=== PATIENT | male | born 1955 | race Caucasian/White ===

== ENCOUNTER 2018-10-09 12:06 | Emergency (ER) | payer OTHER ==
--- NOTE | 2018-10-09 12:24 | ED ---
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 Injury injury and burn was about 2 hours prior to arrival. Take off close immediately, he has severe right-sided burn right-sided chest and abdomen burn mostly first-degree with areas of second degree blistering. Patient denies any other areas of injury. No modifying factors, patient is not taking anything for pain. MD Complaint: burn (Hot water) -: hour(s) Type of Exposure: hot liquid Smoke Inhalation: none Place: industrial Location: chest, abdomen Severity: moderate Severity scale (1-10): 7 Associated Symptoms: fever/chills - Related Data Home Medications Medication Instructions Recorded Confirmed No Known Home Medications 10/09/18 10/09/18 Allergies Allergy/AdvReac Type Severity Reaction Status Date / Time No Known Allergies Allergy Verified 10/09/18 13:35 Review of Systems ROS Statement: Those systems with pertinent positive or pertinent negative responses have been documented in the HPI. ROS Other: All systems not noted in ROS Statement are negative. Past Medical History Past Medical History: Chest Pain / Angina History of Any Multi-Drug Resistant Organisms: None Reported Past Surgical History: Heart Catheterization With Stent Past Psychological History: No Psychological Hx Reported Smoking Status: Current every day smoker Past Alcohol Use History: None Reported Past Drug Use History: None Reported General Exam - General Exam Comments Initial Comments: 15% burn area to the anterior abdomen, 2% second degree Limitations: no limitations General appearance: alert, in no apparent distress Head exam: Present: atraumatic, normocephalic, normal inspection Eye exam: Present: normal appearance, PERRL, EOMI. Absent: scleral icterus, conjunctival injection, periorbital swelling ENT exam: Present: normal exam, mucous membranes moist Neck exam: Present: normal inspection. Absent: tenderness, meningismus, lymphadenopathy Respiratory exam: Present: normal lung sounds bilaterally. Absent: respiratory distress, wheezes, rales, rhonchi, stridor Cardiovascular Exam: Present: regular rate, normal rhythm, normal heart sounds. Absent: systolic murmur, diastolic murmur, rubs, gallop, clicks GI/Abdominal exam: Present: soft, normal bowel sounds. Absent: distended, tenderness, guarding, rebound, rigid Extremities exam: Present: normal inspection, full ROM, normal capillary refill. Absent: tenderness, pedal edema, joint swelling, calf tenderness Back exam: Present: normal inspection Neurological exam: Present: alert, oriented X3, CN II-XII intact Psychiatric exam: Present: normal affect, normal mood Skin exam: Present: warm, dry, intact, normal color. Absent: rash Course Vital Signs 10/09/18 10/09/18 12:12 13:31 Temperature 97.7 F Pulse Rate 72 65 Respiratory 20 20 Rate Blood Pressure 131/85 119/89 O2 Sat by Pulse 99 Oximetry - Reevaluation(s) Reevaluation #1: 10/09/18 12:58 medical records reviewed Reevaluation #2: 10/09/18 12:58 Patient's pain is controlled Reevaluation #3: 10/09/18 14:15 Patient improved Medical Decision Making - Medical Decision Making 63 male the ER for evaluation for second degree burn of abdominal wall. Patient encouraged to continue wet-to-dry can be discharged home Disposition Clinical Impression: Thermal burn, Second degree burn of abdomen, First degree burn of abdominal wall Disposition: HOME SELF-CARE Condition: Good Instructions (If sedation given, give patient instructions): Superficial Burn (ED), Second Degree Burn (ED) Is patient prescribed a controlled substance at d/c from ED?: No Referrals: [facility] [Primary Care Provider] - 1-2 days
[2018-10-09] MEDS ORDERED: SODIUM CHLORIDE 0.9% 1,000 ML IV STA ×2 (12:55)
[2018-10-09] MEDS ORDERED: SODIUM CHLORIDE 0.9% 500 ML 500 ML IV STA (12:55)
[2018-10-09] MEDS ORDERED: HYDROmorphone 1 MG/ML 1 ML SYRINGE IVP STA (12:55)
[2018-10-09] MEDS ORDERED: DIPH,PERTUS(ACELL)TETVAC-LF 0.5 ML VIAL IM ONE (12:56)
[2018-10-09] MEDS ORDERED: HYDROcodone/APAP 5-325MG 1 EACH TAB PO STA (14:14)
[2018-10-09] MEDS ORDERED: KETOROLAC 30 MG/ML 1 ML VIAL IVP STA (14:14)
--- NOTE | 2018-10-09 15:36 | ED ---
Medical Decision Making - Medical Decision Making This patient is requesting pain medication, will prescribe pain medication for burn control her pain control Disposition Clinical Impression: Thermal burn, Second degree burn of abdomen, First degree burn of abdominal wall Disposition: HOME SELF-CARE Condition: Good Instructions (If sedation given, give patient instructions): Superficial Burn (ED), Second Degree Burn (ED) Prescriptions: HYDROcodone/APAP 5-325MG [[place] 5-325] 1 tab PO Q6HR PRN #12 tab PRN Reason: Pain Is patient prescribed a controlled substance at d/c from ED?: Yes When asked, does pt state using other controlled substances?: No If prescribed controlled substance>3 days was MAPS reviewed?: Prescribed <3 Days Referrals: [facility] [Primary Care Provider] - 1-2 days
[2018-10-09 15:51] VITALS: BP 129/80; PULSE 82; RESP 18; TEMP 97.3
== END 2018-10-09 15:51 | disposition home or self-care (01) ==
LOC: EC 12:06
DX: T21.22XA Burn of second degree of abdominal wall, initial encounter (principal); T21.01XA Burn of unspecified degree of chest wall, initial encounter; T31.0 Burns involving less than 10% of body surface; F17.200 Nicotine dependence, unspecified, uncomplicated; Z23 Encounter for immunization; Z95.5 Presence of coronary angioplasty implant and graft; X12.XXXA Contact with other hot fluids, initial encounter; Y92.511 Restaurant or cafe as the place of occurrence of the external cause; Y99.0 Civilian activity done for income or pay
CPT/HCPCS: 90715; 99284; 96374; 96375; 90471; J1885; J1170

== ENCOUNTER 2019-05-11 23:17 | Emergency (ER) | payer OTHER ==
[2019-05-11 23:24] VITALS: RESP 18; TEMP 98
[2019-05-11] MEDS ORDERED: KETOROLAC 30 MG/ML 1 ML VIAL IM STA (23:51)
[2019-05-11] MEDS ORDERED: DIAZEPAM 5 MG/ML 2 ML INJ IM ONE (23:51)
[2019-05-11] MEDS ORDERED: MORPHINE SULFATE 4 MG/ML SYRINGE IM STA (23:51)
--- NOTE | 2019-05-12 00:30 | ED ---
Neck Injury/Pain HPI - General Chief Complaint: Neck Pain/Injury Stated Complaint: lt shoulder pain Time Seen by Provider: 05/11/19 23:28 Mode of arrival: ambulatory Limitations: no limitations - History of Present Illness Initial Comments: 63-year-old male patient presents to the emergency department today for evaluation of neck pain radiating down his arms. Patient states he has been dealing with a "neck strain" for the last week. Patient states that it worsened this morning, states he went to [facility] for evaluation this morning. He was given robaxin and motrin. States he took his medication and went to sleep. He woke 2 hours ago with extreme symptoms. Patient states that the pain is radiating down into the left shoulder and into his arm. Denies numbness or tingling to the upper extremities. Denies any known injury. He denies any chest pain, shortness of breath, abdominal pain, nausea, or vomiting. Denies any dizziness, weakness, or headache. Patient states sometimes the pain worsens with certain arm movements. Patient denies any recent rash, fever, chills, diarrhea, constipation, back pain, numbness, tingling, hematuria, dysuria, urinary urgency, urinary frequency, visual changes, or any other complaints. - Related Data Previous Rx's Medication Instructions Recorded HYDROcodone/APAP 5-325MG [[place] 1 tab PO Q6HR PRN #12 tab 10/09/18 5-325] Allergies Allergy/AdvReac Type Severity Reaction Status Date / Time No Known Allergies Allergy Verified 10/09/18 13:35 Review of Systems ROS Statement: Those systems with pertinent positive or pertinent negative responses have been documented in the HPI. ROS Other: All systems not noted in ROS Statement are negative. Past Medical History Past Medical History: Chest Pain / Angina History of Any Multi-Drug Resistant Organisms: None Reported Past Surgical History: Heart Catheterization With Stent Past Psychological History: No Psychological Hx Reported Smoking Status: Current every day smoker Past Alcohol Use History: None Reported Past Drug Use History: None Reported General Exam Limitations: no limitations General appearance: alert, in no apparent distress, other (This is a well- developed, well-nourished, adult male patient in no acute distress. Vital signs upon presentation are temperature 98.0F, pulse 74, respirations 18, blood pressure 106/75, pulse ox 97% on room air.) Eye exam: Present: normal appearance, PERRL, EOMI. Absent: scleral icterus, conjunctival injection, periorbital swelling ENT exam: Present: normal exam, normal oropharynx, mucous membranes moist Respiratory exam: Present: normal lung sounds bilaterally. Absent: respiratory distress, wheezes, rales, rhonchi, stridor Cardiovascular Exam: Present: regular rate, normal rhythm, normal heart sounds. Absent: systolic murmur, diastolic murmur, rubs, gallop, clicks GI/Abdominal exam: Present: soft, normal bowel sounds. Absent: distended, tenderness, guarding, rebound, rigid Extremities exam: Present: normal inspection, full ROM, normal capillary refill, other (Skin to the upper extremities is pink, warm, dry. Cap refills less than 3 seconds. Radial pulses 2+ and equal bilaterally.). Absent: tenderness, pedal edema, joint swelling, calf tenderness Neurological exam: Present: alert, oriented X3, CN II-XII intact Psychiatric exam: Present: normal affect, normal mood Skin exam: Present: warm, dry, intact, normal color. Absent: rash Course Vital Signs 05/11/19 23:20 Temperature 98 F Pulse Rate 74 Respiratory 18 Rate Blood Pressure 106/75 O2 Sat by Pulse 97 Oximetry Medical Decision Making - Medical Decision Making 63-year-old male patient presents to the emergency department today for evaluation of neck pain radiating into his shoulders. Physical examination is unremarkable. He is neurologically intact with no focal deficits. Neurovascular status is intact. CT of the C-spine was obtained and shows no acute fractures but did show spondylotic changes. Discuss findings and results with the patient. He does have improved symptoms after receiving pain medication here in the emergency department. He does have anti-inflammatory muscle relaxers at home. We'll give a starter pack of Tylenol for codeine for breakthrough pain. He is instructed to follow up with his primary care physician which is currently the [facility]'s clinic to discuss further evaluation possible MRI and referral to catalog specialist. Return parameters were discussed in detail. He verbalizes understanding and agrees with this plan. - Radiology Data Radiology results: report reviewed, image reviewed CT cervical spine without contrast was obtained. Report was reviewed in its entirety. Impression by Dr. Lyles shows spondylotic changes. No fracture seen Disposition Clinical Impression: Neck pain Disposition: HOME SELF-CARE Condition: Good Instructions (If sedation given, give patient instructions): Neck Pain (ED) Additional Instructions: Follow-up with your primary care physician for recheck in 1-2 days. Discuss MRI for further evaluation of her neck pain. Return to the emergency department immediately for any new, worsening, or concerning symptoms. Is patient prescribed a controlled substance at d/c from ED?: No Referrals: None,Stated [Primary Care Provider] - 1-2 days Time of Disposition: 01:34
--- NOTE | 2019-05-12 01:01 | CT ---
EXAMINATION TYPE: CT cervical spine wo con DATE OF EXAM: 05/12/2019 COMPARISON: None HISTORY: Neck pain CT DLP: mGycm Automated exposure control for dose reduction was used. Cervical vertebra have normal alignment. There is some spurring of the endplates from C4 to C7. Poste rior elements are intact. Facet joints are intact. Skull base is intact. There is no evidence of a fr acture. I see no bony destructive process. IMPRESSION: Spondylotic changes. No fracture seen.
[2019-05-12] MEDS ORDERED: ACET/COD 300 MG/30 MG STARTER PACK 6 TAB BTL PO STA (01:38)
[2019-05-12 02:00] VITALS: BP 109/73; PULSE 60
== END 2019-05-12 02:19 | disposition home or self-care (01) ==
LOC: EC 23:17
DX: M54.2 Cervicalgia (principal); M25.512 Pain in left shoulder; I25.2 Old myocardial infarction; F17.200 Nicotine dependence, unspecified, uncomplicated; Z95.5 Presence of coronary angioplasty implant and graft
CPT/HCPCS: 72125; 96372 ×2; 99283; J2270; J3360

== ENCOUNTER 2022-02-09 18:23 | Observation (INO) | payer MEDICARE ==
[2022-02-09 18:59] LABS: Basophils # (A) 0.1 k/uL (0-0.2); Basophils % (A) 1 %; Eosinophils # (A) 0.3 k/uL (0-0.7); Eosinophils % (A) 4 %; HCT 43.4 % (39.0-53.0); HGB 14.7 gm/dL (13.0-17.5); Lymphocytes # (A) 0.7 k/uL (1.0-4.8); Lymphocytes % (A) 10 %; MCH 30.3 pg (25.0-35.0); MCHC 33.8 g/dL (31.0-37.0); MCV 89.8 fL (80.0-100.0); Mean Platelet Volume 6.8; Monocytes # (A) 0.7 k/uL (0-1.0); Monocytes % (A) 11 %; Neutrophils # (A) 4.9 k/uL (1.3-7.7); Neutrophils % (A) 73 %; Platelet Count 334 k/uL (150-450); RBC 4.83 m/uL (4.30-5.90); RDW 13.3 % (11.5-15.5); WBC 6.7 k/uL (3.8-10.6)
--- NOTE | 2022-02-09 19:06 | XR ---
EXAMINATION TYPE: XR chest 2V DATE OF EXAM: 02/09/2022 COMPARISON: NONE HISTORY: Chest pain TECHNIQUE: FINDINGS: Heart and mediastinum are normal. Lungs are clear. Diaphragm is normal. Bony thorax is inta ct. IMPRESSION: Normal chest.
[2022-02-09 19:08] LABS: INR 1.1 (<1.2); Partial Thromboplastin Time 24.2 sec (22.0-30.0); Prothrombin Time 11.4 sec (9.0-12.0)
[2022-02-09 19:14] LABS: ALT 17 U/L (4-49); AST 21 U/L (17-59); African American GFR (CKD) >90 (>60 ml/min/1.73 sqM); Alkaline Phosphatase 69 U/L (38-126); Anion Gap 12 mmol/L; Blood Urea Nitrogen 13 mg/dL (9-20); Calcium 9.1 mg/dL (8.4-10.2); Carbon Dioxide 22 mmol/L (22-30); Chloride 102 mmol/L (98-107); Glucose 101 mg/dL (74-99); Magnesium 1.8 mg/dL (1.6-2.3); Non-African American GFR(CKD) >90 (>60 ml/min/1.73 sqM); Potassium 3.8 mmol/L (3.5-5.1); Sodium 136 mmol/L (137-145); Total Bilirubin 0.2 mg/dL (0.2-1.3); Total Protein 6.5 g/dL (6.3-8.2)
[2022-02-09] MEDS ORDERED: HYDROmorphone 0.5 MG/0.5 ML SYRINGE IVP STA (19:50)
--- NOTE | 2022-02-09 19:56 | ED ---
General Adult HPI - General Chief complaint: Chest Pain Stated complaint: chest pain, R side pain Time Seen by Provider: 02/09/22 19:30 Source: patient, RN notes reviewed, old records reviewed Mode of arrival: wheelchair Limitations: no limitations - History of Present Illness Initial comments: This is a 66-year-old male who presents emergency Department complaining of having pain in his chest abdomen back with radiation into his legs. Patient states it started in his stomach yesterday and he was nauseated but didn't vomit had no diarrhea. Patient states it didn't seem to radiate into his back and down both of his legs. Patient states movement did not appear to make it worse actually lying down seems to make it little worse. Patient stated then went up into his chest and he was having significant left-sided chest pain. Patient states currently the chest pain and abdominal pain have resolved and the back pain and radiation of the legs continues but is not as bad as it was earlier. Patient denies any fever chills or cough per patient denies shortness of breath or difficulty breathing. Patient denies any headache patient denies numbness weakness. Patient denies lightheadedness or dizziness. 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 Patient does have a previous history for cardiac stent. Patient has high cholesterol and is a very heavy smoker - Related Data Home Medications Medication Instructions Recorded Confirmed Aspirin EC [Ecotrin Low Dose] 81 mg PO DAILY 02/09/22 02/09/22 Atorvastatin Calcium [Lipitor] 80 mg PO DAILY 02/09/22 02/09/22 Clopidogrel [Plavix] 75 mg PO DAILY 02/09/22 02/09/22 Metoprolol Succinate (ER) [Toprol 12.5 mg PO DAILY 02/09/22 02/09/22 Xl] Nitroglycerin Sl Tabs [Nitrostat] 0.4 mg SUBLINGUAL Q5M PRN 02/09/22 02/09/22 Allergies Allergy/AdvReac Type Severity Reaction Status Date / Time meperidine [From Demerol] Allergy Unknown Verified 02/09/22 21:17 Review of Systems ROS Statement: Those systems with pertinent positive or pertinent negative responses have been documented in the HPI. ROS Other: All systems not noted in ROS Statement are negative. Past Medical History Past Medical History: Coronary Artery Disease (CAD), Chest Pain / Angina, Hyperlipidemia, Hypertension History of Any Multi-Drug Resistant Organisms: None Reported Past Surgical History: Heart Catheterization With Stent Past Psychological History: No Psychological Hx Reported Smoking Status: Current every day smoker Past Alcohol Use History: None Reported Past Drug Use History: None Reported General Exam - General Exam Comments Initial Comments: GENERAL: Patient is well-developed and well-nourished. Patient is nontoxic and well- hydrated and is in mild distress. ENT: Neck is soft and supple. No significant lymphadenopathy is noted. Oropharynx is clear. Moist mucous membranes. Neck has full range of motion without eliciting any pain. EYES: The sclera were anicteric and conjunctiva were pink and moist. Extraocular movements were intact and pupils were equal round and reactive to light. Eyelids were unremarkable. PULMONARY: Unlabored respirations. Good breath sounds bilaterally. No audible rales rho nchi or wheezing was noted. CARDIOVASCULAR: There is a regular rate and rhythm without any murmurs gallops or rubs. ABDOMEN: Soft and nontender with normal bowel sounds. No palpable organomegaly was noted. There is no palpable pulsatile mass. SKIN: Skin is clear with no lesions or rashes and otherwise unremarkable. NEUROLOGIC: Patient is alert and oriented x3. Cranial nerves II through XII are grossly intact. Motor and sensory are also intact. Normal speech, volume and content. Symmetrical smile. Straight leg test is negative bilaterally MUSCULOSKELETAL: Normal extremities with adequate strength and full range of motion. No lower extremity swelling or edema. No calf tenderness. Palpation of the back elicits no pain LYMPHATICS: No significant lymphadenopathy is noted PSYCHIATRIC: Normal psychiatric evaluation. N Limitations: no limitations Course Vital Signs 02/09/22 18:30 Temperature 99 F Pulse Rate 91 Respiratory 20 Rate Blood Pressure 98/68 O2 Sat by Pulse 97 Oximetry Medical Decision Making - Medical Decision Making EKG shows sinus rhythm at 73 bpm MN interval 262 QRS is 74 QT interval 370 QTC is 396. Patient's EKG shows no ST segment elevation or depression. CT of the lumbar thoracic area shows no acute abnormalities. CT of the aorta shows no acute abnormality. Patient stated that the Dilaudid did help his back pain. But he still concerned about his chest pain as previous stent. [facility] the patient will write admitting orders and consult cardiology - Lab Data Result diagrams: 02/09/22 18:45 02/09/22 18:45 Lab Results 02/09/22 02/09/22 02/09/22 Range/Units 18:45 18:45 18:45 WBC 6.7 (3.8-10.6) k/uL RBC 4.83 (4.30-5.90) m/uL Hgb 14.7 (13.0-17.5) gm/dL Hct 43.4 (39.0-53.0) % MCV 89.8 (80.0-100.0) fL MCH 30.3 (25.0-35.0) pg MCHC 33.8 (31.0-37.0) g/dL RDW 13.3 (11.5-15.5) % Plt Count 334 (150-450) k/uL MPV 6.8 Neutrophils % 73 % Lymphocytes % 10 % Monocytes % 11 % Eosinophils % 4 % Basophils % 1 % Neutrophils # 4.9 (1.3-7.7) k/uL Lymphocytes # 0.7 L (1.0-4.8) k/uL Monocytes # 0.7 (0-1.0) k/uL Eosinophils # 0.3 (0-0.7) k/uL Basophils # 0.1 (0-0.2) k/uL PT 11.4 (9.0-12.0) sec INR 1.1 (<1.2) APTT 24.2 (22.0-30.0) sec D-Dimer (<0.60) mg/L FEU Sodium 136 L (137-145) mmol/L Potassium 3.8 (3.5-5.1) mmol/L Chloride 102 (98-107) mmol/L Carbon Dioxide 22 (22-30) mmol/L Anion Gap 12 mmol/L BUN 13 (9-20) mg/dL Creatinine 0.57 L (0.66-1.25) mg/dL Est GFR (CKD-EPI)AfAm >90 (>60 ml/min/1.73 sqM) Est GFR (CKD-EPI)NonAf >90 (>60 ml/min/1.73 sqM) Glucose 101 H (74-99) mg/dL Calcium 9.1 (8.4-10.2) mg/dL Magnesium 1.8 (1.6-2.3) mg/dL Total Bilirubin 0.2 (0.2-1.3) mg/dL AST 21 (17-59) U/L ALT 17 (4-49) U/L Alkaline Phosphatase 69 (38-126) U/L Troponin I (0.000-0.034) ng/mL Total Protein 6.5 (6.3-8.2) g/dL Albumin 4.0 (3.5-5.0) g/dL 02/09/22 02/09/22 Range/Units 18:45 19:42 WBC (3.8-10.6) k/uL RBC (4.30-5.90) m/uL Hgb (13.0-17.5) gm/dL Hct (39.0-53.0) % MCV (80.0-100.0) fL MCH (25.0-35.0) pg MCHC (31.0-37.0) g/dL RDW (11.5-15.5) % Plt Count (150-450) k/uL MPV Neutrophils % % Lymphocytes % % Monocytes % % Eosinophils % % Basophils % % Neutrophils # (1.3-7.7) k/uL Lymphocytes # (1.0-4.8) k/uL Monocytes # (0-1.0) k/uL Eosinophils # (0-0.7) k/uL Basophils # (0-0.2) k/uL PT (9.0-12.0) sec INR (<1.2) APTT (22.0-30.0) sec D-Dimer 0.35 (<0.60) mg/L FEU Sodium (137-145) mmol/L Potassium (3.5-5.1) mmol/L Chloride (98-107) mmol/L Carbon Dioxide (22-30) mmol/L Anion Gap mmol/L BUN (9-20) mg/dL Creatinine (0.66-1.25) mg/dL Est GFR (CKD-EPI)AfAm (>60 ml/min/1.73 sqM) Est GFR (CKD-EPI)NonAf (>60 ml/min/1.73 sqM) Glucose (74-99) mg/dL Calcium (8.4-10.2) mg/dL Magnesium (1.6-2.3) mg/dL Total Bilirubin (0.2-1.3) mg/dL AST (17-59) U/L ALT (4-49) U/L Alkaline Phosphatase (38-126) U/L Troponin I <0.012 (0.000-0.034) ng/mL Total Protein (6.3-8.2) g/dL Albumin (3.5-5.0) g/dL Disposition Clinical Impression: Chest pain, Lumbar pain Disposition: ADMITTED IP TO THIS HOSP Referrals: Olaf Zamora MD [Primary Care Provider] - 1-2 days Time of Disposition: 21:19
--- NOTE | 2022-02-09 21:00 | CT ---
EXAMINATION TYPE: CT thor lumbar spine wo con DATE OF EXAM: 02/09/2022 COMPARISON: HISTORY: Chest abdomen and back pain CT DLP: 1210.7 combined mGycm Automated exposure control for dose reduction was used. Images obtained from the level of C7-S2 vertebra with no contrast. The thoracic and lumbar vertebra have normal spacing and alignment. Posterior element are intact. No compression fracture. Disc spaces are well-maintained for the patient's age. There is no thoracic or lumbar paraspinal mass. The posterior elements are intact. No evidence of spi nal stenosis. The sacroiliac joints are intact. There is a mild posterior disc bulging at L4-5. No fo ade bone destruction. IMPRESSION: Negative CT scan of the thoracic and lumbar spine. No fracture. No evidence of any significant disc h erniation. No spinal stenosis.
--- NOTE | 2022-02-09 21:10 | CT ---
EXAMINATION TYPE: CT angio thor/abd pel aorta DATE OF EXAM: 02/09/2022 COMPARISON: None HISTORY: Chest abdomen and back pain CT DLP: 1210.7 combined mGycm Automated exposure control for dose reduction was used. CONTRAST: Performed with IV Contrast, patient injected with 100ml mL of Isovue 370. Images obtained from the thoracic inlet to the floor the pelvis without and subsequently with the IV contrast Isovue 100 mL. There are 3-D post processed images. There is some minimal reticular interstitial infiltrate at the lung apices. Heart size is normal. No pericardial effusion. There are no hilar masses. There is no mediastinal adenopathy. There is emphyse matous bulla in the anterior mediastinum on the left side. Liver spleen stomach pancreas and gallblad pro appear intact. The bile ducts are not dilated. There is no adrenal mass. Kidneys have normal size . No hydronephrosis. There is 2 mm calculus anterior left kidney. There is some amorphous 5 mm calcif ication lower pole left kidney. This is apparently a 2 cm complex cortical cyst. There is no retroper itoneal adenopathy. Abdominal aorta is atheromatous. Bladder distends smoothly. There is prostate ade cification. No inguinal hernia. No free fluid in the pelvis. No pelvic mass. There is no mesenteric edema. No ascites or free air. No sign of a bowel obstruction. The lumbar vertebrae have normal alignment. Posterior elements are intact. No compression fracture. S ternum is intact. The ribs are intact. Thoracic vertebrae appear intact. The bony pelvis is intact. H ip joints appear normal. The thoracic aorta appears intact. The ascending aorta measures 3.4 cm. No dissection. There is no fi lling defect in the pulmonary arteries. Abdominal aorta is intact. No aneurysm or dissection. There i s atherosclerotic vascular calcification of the abdominal aorta. There is arterial flow in the celiac artery and superior mesenteric artery. There is arterial flow in the renal and iliac and femoral art eries. No evidence of hemodynamic stenosis. IMPRESSION: There is some mild diffuse plaque formation of the abdominal aorta and its branches without evidence of hemodynamic stenosis. No evidence of pulmonary embolism. No evidence of aortic aneurysm or dissection.
[2022-02-09] MEDS ORDERED: NITROGLYCERIN SL TABS 0.4 MG TAB SUBLINGUAL PRN (21:19)
[2022-02-10] MEDS: NITROGLYCERIN OINT 1 INCH/GM PACKET TOPICAL SCH ×2 (01:16→05:21)
[2022-02-10] MEDS ORDERED: SODIUM CHLORIDE 0.9% 1,000 ML IV SCH (07:45)
[2022-02-10] MEDS ORDERED: DOBUTamine DRIP for NUC MED 500 MG in DEXTROSE/WATER 1 250ML.BAG IV PRN (08:12)
[2022-02-10] MEDS ORDERED: ASPIRIN 81 MG PO SCH (09:00)
[2022-02-10] MEDS ORDERED: ASPIRIN 325 MG TAB PO SCH (09:00)
[2022-02-10] MEDS ORDERED: MAG HYDROX/AL HYDROX/SIMETH 30 ML, HYOSCYAMINE ELIXIR 10 ML, LIDOCAINE VISCOUS 2% 10 ML PO ONE ×3 (09:00)
[2022-02-10] MEDS ORDERED: ATORVASTATIN 80 MG TAB PO SCH (09:00)
[2022-02-10] MEDS ORDERED: METOPROLOL SUCCINATE (ER) 25 MG TAB.ER.24H PO SCH (09:00)
[2022-02-10] MEDS ORDERED: CLOPIDOGREL 75 MG TAB PO SCH (09:00)
[2022-02-10 09:32] LABS: Chol/HDL Ratio 4.39 Ratio; LDL Cholesterol,Calculated 87.5 mg/dL (0.0-131.0)
--- NOTE | 2022-02-10 09:57 | P.CRDCN ---
History of Present Illness History of present illness: HISTORY OF PRESENT ILLNESS: This is a 66-year-old male with a past medical history significant for nicotine dependence, hyperlipidemia, and coronary artery disease with previous stenting (details unknown as this was performed in [place]). Patient does not follow wi th a brusher hand. We have been asked to see the patient in consultation for chest pain. Patient examined at the bedside. Patient presented to the hospital a chief complaint of back pain and chest pain. Patient states he has been having back pain for the past few days and pain shooting down his legs. Patient also reports having pain in the middle of his chest that has been intermittent for the past few months. He states that sometimes it feels like a heartburn sensation. He states drinking water makes it better. The patient is a current smoker and smokes 2.5 packs per day. * EKG reveals sinus mechanism with nonspecific ST-T wave changes * Chest xray negative for acute process * Laboratory data: WBC 6.7. Hemoglobin 14.7. Platelet count 334. D-dimer 0.35. Sodium 136. Potassium 3.8. BUN 13. Creatinine 0.57. Magnesium 1.8. * Current home cardiac medications include aspirin 81 mg daily, Lipitor 80 mg daily, Plavix 75 mg daily, metoprolol succinate 12.5 mg daily REVIEW OF SYSTEMS: At the time of my exam: CONSTITUTIONAL: Denies fever or chills. HEENT: Denies blurred vision, vision changes, or eye pain. Denies hemoptysis CARDIOVASCULAR: Denies chest pain. Denies orthopnea. Denies PND. Denies palpitations RESPIRATORY: Denies shortness of breath. GASTROINTESTINAL: Denies abdominal pain. Denies nausea or vomiting. HEMATOLOGIC: Denies bleeding disorders. GENITOURINARY: Denies any blood in urine. SKIN: Denies pruitis. Denies rash. PHYSICAL EXAM: VITAL SIGNS: Reviewed. GENERAL: Well-developed in no acute distress. HEENT: Head is normocephalic. Pupils are equal, round. Sclerae anicteric. Mucous membranes of the mouth are moist. Neck supple. No JVD or thyromegaly LUNGS: Respirations even and unlabored. Lungs diminished to auscultation bilaterally. HEART: Regular rate and rhythm. S1 and S2 heard. ABDOMEN: Soft. Nondistended. Nontender. EXTREMITIES: Normal range of motion. No clubbing or cyanosis. Peripheral pulses intact. No lower extremity edema NEUROLOGIC: Awake and alert. Oriented x 3. ASSESSMENT: Chest pain Back pain Coronary artery disease with previous stenting Hyperlipidemia Nicotine dependence PLAN: An acute coronary event has been ruled out Obtain records from patients previous brusher hand in [place] Obtain 2D echo to assess cardiac structure and function Resume home cardiac medications Smoking cessation recommended Management and evaluation of back pain per primary medicine Patient to undergo Dobutamine stress echo today Further recommendations pending patient course Nurse practitioner note has been reviewed by physician. Signing provider agrees with the documented findings, assessment, and plan of care. Past Medical History Past Medical History: Coronary Artery Disease (CAD), Chest Pain / Angina, Hyperlipidemia, Hypertension History of Any Multi-Drug Resistant Organisms: None Reported Past Surgical History: Heart Catheterization With Stent Past Anesthesia/Blood Transfusion Reactions: No Reported Reaction Date of Last Stent Placement:: 2015 Past Psychological History: No Psychological Hx Reported Smoking Status: Current every day smoker Past Alcohol Use History: None Reported Past Drug Use History: None Reported Medications and Allergies Home Medications Medication Instructions Recorded Confirmed Type Aspirin EC [Ecotrin Low Dose] 81 mg PO DAILY 02/09/22 02/09/22 History Atorvastatin Calcium [Lipitor] 80 mg PO DAILY 02/09/22 02/09/22 History Clopidogrel [Plavix] 75 mg PO DAILY 02/09/22 02/09/22 History Metoprolol Succinate (ER) [Toprol 12.5 mg PO DAILY 02/09/22 02/09/22 History Xl] Nitroglycerin Sl Tabs [Nitrostat] 0.4 mg SUBLINGUAL Q5M PRN 02/09/22 02/09/22 History Allergies Allergy/AdvReac Type Severity Reaction Status Date / Time meperidine [From Demerol] Allergy Unknown Verified 02/09/22 21:17 Physical Exam Vitals: Vital Signs Temp Pulse Pulse Resp BP BP Pulse Ox 02/10/22 02:33 98.6 F 66 15 98/57 96 02/09/22 23:40 99.4 F 72 17 89/54 95 02/09/22 22:55 73 18 96/58 93 L 02/09/22 18:30 99 F 91 20 98/68 97 Intake and Output 02/09/22 02/10/22 02/10/22 22:59 06:59 14:59 Other: # Voids 1 Weight 65.771 kg Results 02/09/22 18:45 02/09/22 18:45 Cardiac Enzymes 02/09/22 02/09/22 02/09/22 Range/Units 18:45 18:45 22:02 AST 21 (17-59) U/L Troponin I <0.012 <0.012 (0.000-0.034) ng/mL 02/10/22 Range/Units 00:43 AST (17-59) U/L Troponin I <0.012 (0.000-0.034) ng/mL Coagulation 02/09/22 Range/Units 18:45 PT 11.4 (9.0-12.0) sec APTT 24.2 (22.0-30.0) sec CBC 02/09/22 Range/Units 18:45 WBC 6.7 (3.8-10.6) k/uL RBC 4.83 (4.30-5.90) m/uL Hgb 14.7 (13.0-17.5) gm/dL Hct 43.4 (39.0-53.0) % Plt Count 334 (150-450) k/uL Comprehensive Metabolic Panel 02/09/22 Range/Units 18:45 Sodium 136 L (137-145) mmol/L Potassium 3.8 (3.5-5.1) mmol/L Chloride 102 (98-107) mmol/L Carbon Dioxide 22 (22-30) mmol/L BUN 13 (9-20) mg/dL Creatinine 0.57 L (0.66-1.25) mg/dL Glucose 101 H (74-99) mg/dL Calcium 9.1 (8.4-10.2) mg/dL AST 21 (17-59) U/L ALT 17 (4-49) U/L Alkaline Phosphatase 69 (38-126) U/L Total Protein 6.5 (6.3-8.2) g/dL Albumin 4.0 (3.5-5.0) g/dL Current Medications Generic Name Dose Route Start Last Admin Trade Name Freq PRN Reason Stop Dose Admin Aspirin 81 mg 02/10/22 09:00 Aspirin 81 Mg PO DAILY [facility] Atorvastatin Calcium 80 mg 02/10/22 09:00 Atorvastatin 80 Mg Tab PO DAILY [facility] Clopidogrel Bisulfate 75 mg 02/10/22 09:00 Clopidogrel 75 Mg Tab PO DAILY [facility] Sodium Chloride 1,000 mls @ 75 mls/hr 02/10/22 07:45 Saline 0.9% IV .[id number] [facility] Metoprolol Succinate 12.5 mg 02/10/22 09:00 Metoprolol Succinate (Er) 25 Mg Tab.Er.24h PO DAILY [facility] Nitroglycerin 0.4 mg 02/09/22 21:19 Nitroglycerin Sl Tabs 0.4 Mg Tab SUBLINGUAL Q5M PRN Chest Pain Intake and Output 02/09/22 02/10/22 02/10/22 22:59 06:59 14:59 Other: # Voids 1 Weight 65.771 kg 02/09/22 18:45 02/09/22 18:45
[2022-02-10] MEDS ORDERED: DOBUTamine DRIP for NUC MED 500 MG/250 ML BAG IV ONE (10:00)
--- NOTE | 2022-02-10 13:01 | P.HPIM ---
History of Present Illness H&P Date: 02/10/22 Chief Complaint: Chest pain and back pain History of present illness; Patient is a 66-year-old male with a past medical history significant for nicotine dependence, hyperlipidemia, and coronary artery disease with previous stenting who presented to the ER because of chest pain and back pain that started yesterday. Patient stated that this pain initially started in the abdominal and later involved his chest pain and back. Patient stated he has bee n having back pain for the last few days which is radiating down his legs. Patient denied any shortness of breath associated with it. Patient denies any bowel or urinary incontinence. Patient is an active smoker. Because of this persistent back and chest pain, patient presented to the ER where he was worked up. Initial lab work done in the ER was normal. * EKG reveals sinus mechanism with nonspecific ST-T wave changes * Chest xray negative for acute process CTA thoracic and abdominal aorta was negative for any PE or any evidence of aortic aneurysm or dissection CT thoracic and lumbar spine without contrast shows no fracture, no evidence of any significant disc herniation, no spinal stenosis REVIEW OF SYSTEMS: CONSTITUTIONAL: No fever, no malaise, no fatigue. HEENT: No recent visual problems or hearing problems. Denied any sore throat. CARDIOVASCULAR: Still has chest pain. No complaint of orthopnea,no PND, no palpitations, no syncope. PULMONARY: No shortness of breath, no cough, no hemoptysis. GASTROINTESTINAL: No diarrhea, no nausea, no vomiting, no abdominal pain. NEUROLOGICAL: No headaches, no weakness, no numbness. HEMATOLOGICAL: Denies any bleeding or petechiae. GENITOURINARY: Denies any burning micturition, frequency, or urgency. MUSCULOSKELETAL/RHEUMATOLOGICAL: Complaining of back pain ENDOCRINE: Denies any polyuria or polydipsia. The rest of the 14-point review of systems is negative. PHYSICAL EXAMINATION: GENERAL: The patient is alert and oriented x3, not in any acute distress. Well developed, well nourished. HEENT: Pupils are round and equally reacting to light. EOMI. No scleral icterus. No conjunctival pallor. Normocephalic, atraumatic. No pharyngeal erythema. No thyromegaly. CARDIOVASCULAR: S1 and S2 present. No murmurs, rubs, or gallops. PULMONARY: Chest is clear to auscultation, no wheezing or crackles. ABDOMEN: Soft, nontender, nondistended, normoactive bowel sounds. No palpable organomegaly. MUSCULOSKELETAL: No joint swelling or deformity. EXTREMITIES: No cyanosis, clubbing, or pedal edema. NEUROLOGICAL: Gross neurological examination did not reveal any focal deficits. SKIN: No rashes. Assessment Chest pain Back pain History of coronary artery disease Hyperlipidemia Nicotine dependence PLAN: Monitor vital signs. Monitor CBC Continue telemetry monitoring. Ordered lipid panel Currently nothing by mouth, going for stress test today per cardiology Resume home cardiac medications 2-D echo ordered DVT prophylaxis: SCDs Past Medical History Past Medical History: Coronary Artery Disease (CAD), Chest Pain / Angina, Hyperlipidemia, Hypertension History of Any Multi-Drug Resistant Organisms: None Reported Past Surgical History: Heart Catheterization With Stent Past Anesthesia/Blood Transfusion Reactions: No Reported Reaction Date of Last Stent Placement:: 2015 Past Psychological History: No Psychological Hx Reported Smoking Status: Current every day smoker Past Alcohol Use History: None Reported Past Drug Use History: None Reported Medications and Allergies Home Medications Medication Instructions Recorded Confirmed Type Aspirin EC [Ecotrin Low Dose] 81 mg PO DAILY 02/09/22 02/09/22 History Atorvastatin Calcium [Lipitor] 80 mg PO DAILY 02/09/22 02/09/22 History Clopidogrel [Plavix] 75 mg PO DAILY 02/09/22 02/09/22 History Metoprolol Succinate (ER) [Toprol 12.5 mg PO DAILY 02/09/22 02/09/22 History Xl] Nitroglycerin Sl Tabs [Nitrostat] 0.4 mg SUBLINGUAL Q5M PRN 02/09/22 02/09/22 Hi story Allergies Allergy/AdvReac Type Severity Reaction Status Date / Time meperidine [From Demerol] Allergy Unknown Verified 02/09/22 21:17 Physical Exam Vitals: Vital Signs Temp Pulse Pulse Resp BP BP BP 02/10/22 07:00 98.2 F 67 18 103/67 02/10/22 02:33 98.6 F 66 15 98/57 02/09/22 23:40 99.4 F 72 17 89/54 02/09/22 22:55 73 18 96/58 02/09/22 18:30 99 F 91 20 98/68 Pulse Ox 02/10/22 07:00 97 02/10/22 02:33 96 09/14/22 23:40 95 02/09/22 22:55 93 L 02/09/22 18:30 97 Intake and Output 02/09/22 02/10/22 02/10/22 22:59 06:59 14:59 Other: # Voids 1 Weight 65.771 kg Results CBC & Chem 7: 02/09/22 18:45 02/09/22 18:45 Labs: Abnormal Lab Results - Last 24 Hours (Table) 02/09/22 02/09/22 02/09/22 Range/Units 18:45 18:45 18:45 Lymphocytes # 0.7 L (1.0-4.8) k/uL Sodium 136 L (137-145) mmol/L Creatinine 0.57 L (0.66-1.25) mg/dL Glucose 101 H (74-99) mg/dL HDL Cholesterol 32.10 L (40.00-60.00) mg/dL Thrombosis Risk Factor Assmnt - Choose All That Apply Any of the Below Risk Factors Present?: No Other Risk Factors: Yes Each Risk Factor Represents 2 Points: Age 61-74 years Other congenital or acquired thrombophilia - If yes, enter type in comment: No Thrombosis Risk Factor Assessment Total Risk Factor Score: 2 Thrombosis Risk Factor Assessment Level: Low Risk
--- NOTE | 2022-02-10 13:43 | CA ---
Dobutamine Stress Echocardiogram Report Jean-Pierre Mansfield Age: 66 Gender: M : 1955 Exam Date: 02/10/2022 10:28 Exam Location: [place] [facility] Ordering Physician: Odette Dalton Referring Physician: Krystle QUEEN Vp Talent Management: MAMADOU Technologist: Ht (in): 66 Wt (lb): 145 Procedure CPT: Indication: CP ICD-9 Codes: Rhythm: Patient History: Chest Pain Cardiac Medications: Medications in past 24 hours: Contrast: Total Dose (mL): Stress Results Protocol: Dobutamine Peak Dose (???g/kg/min): 40 Duration (min:sec): Atropine:(mg) Target HR: 132 Double Product: 60008 Resting HR: 60 Resting BP: 102 / 68 Peak HR: 119 Peak BP: 134 / 76 Max Predicted HR: 155 77 % Max Predicted HR Stress Summary: Total Dobutamine dose is 18.6mcg BP Response: Reason for Termination: Reached end of 40mcg Cardiac Symptoms: Heart burn ECG Analysis Resting EKG: Stress EKG: Arrhythmia: Echo Analysis Base Echo Analysis: Low Echo Anaylsis: Peak Echo Analysis: Recovery Echo: MEASUREMENTS (Male/Female) Normal Values CONCLUSIONS Baseline heart rate 60 beats a minute, Baseline blood pressure 102/67 mmHg Patient is a dobutamine infusion per protocol No ECG evidence for ischemia No arrhythmias Baseline 2-D echo May showed normal LV systolic function without segmental wall motion abnormalities The dobutamine there was staph improvement in overall LV contractility without development of May for motion abnormalities @Recovery regional global LV systolic function with normal Impression no ECG or echocardiographic evidence for ischemia Dr. John Coronel MD (Electronically Signed) Final Date: 10 February 2022 13:42
--- NOTE | 2022-02-10 13:49 | CA ---
Transthoracic Echo Report Name: Jean-Pierre Mansfield Age: 66 Gender: M : 1955 Exam Date: 02/10/2022 10:20 Exam Location: [facility] Ht (in): 66 Wt (lb): 145 Ordering Physician: Odette Dalton Attending/Referring Phys: [id number], Krystle Underwriter Solicitation Director Izabel Pimentel RDCS Procedure CPT: Indications: LV function, chest pain Cardiac Hx: Technical Quality: Fair Contrast 1: Total Dose (mL): Contrast 2: Total Dose (mL): MEASUREMENTS (Male / Female) Normal Values 2D ECHO LV Diastolic Diameter PLAX 3.9 cm 4.2 - 5.9 / 3.9 - 5.3 cm LV Systolic Diameter PLAX 2.6 cm IVS Diastolic Thickness 0.9 cm 0.6 - 1.0 / 0.6 - 0.9 cm LVPW Diastolic Thickness 1.1 cm 0.6 - 1.0 / 0.6 - 0.9 cm LV Relative Wall Thickness 0.5 LA Volume 46.4 cm??? 18 - 58 / 22 - 52 cm??? M-MODE Aortic Root Diameter MM 3.1 cm LA Systolic Diameter MM 2.0 cm LA Ao Ratio MM 0.6 AV Cusp Separation MM 1.3 cm DOPPLER AV Peak Velocity 143.3 cm/s AV Peak Gradient 8.2 mmHg LVOT Peak Velocity 94.5 cm/s LVOT Peak Gradient 3.6 mmHg MV Area PHT 2.8 cm??? Mitral E Point Velocity 63.7 cm/s Mitral A Point Velocity 56.7 cm/s Mitral E to A Ratio 1.1 MV Deceleration Time 275.6 ms TR Peak Velocity 178.7 cm/s TR Peak Gradient 12.8 mmHg Right Ventricular Systolic Press 17.8 mmHg FINDINGS Left Ventricle Left ventricular cavity size normal. Left ventricular wall thickness normal. Normal left ventricular systolic function with no obvious regional wall motion abnormalities. Left ventricular ejection fraction is estimated at 55 %. Right Ventricle Mild right ventricular dilatation. Right ventricular systolic pressure within normal limits. Right Atrium Normal right atrial size. Left Atrium Normal left atrial size. No evidence for an atrial septal defect. Mitral Valve Mild mitral annular calcification. Mild mitral regurgitation. Aortic Valve No aortic valve stenosis or regurgitation. Tricuspid Valve Structurally normal tricuspid valve. Mild tricuspid regurgitation. Pulmonic Valve Trace pulmonic regurgitation. Pericardium No pericardial effusion. Aorta Normal size aortic root and proximal ascending aorta. CONCLUSIONS Normal LV size and systolic function Previewed by: Dr. John Coronel MD (Electronically Signed) Final Date: 10 February 2022 13:48
[2022-02-10 13:52] VITALS: BP 89/41; PULSE 65; RESP 14; TEMP 98.3
--- NOTE | 2022-02-10 13:58 | P.DS ---
Providers Date of admission: 02/09/22 21:20 Expected date of discharge: 02/10/22 Attending physician: Julien Jade Consults: 02/09/22 21:20 Consult Physician Urgent Consulting Provider: [facility] Consult Reason/Comments: Chest pain Do you want consulting provider notified?: Yes Primary care physician: Olaf Zamora Hospital Course: Discharge diagnoses; Chest pain Back pain History of coronary artery disease Hyperlipidemia Nicotine dependence Hospital course; Patient is a 66-year-old male with a past medical history significant for nicotine dependence, hyperlipidemia, and coronary artery disease with previous stenting who presented to the ER because of chest pain and back pain that s tarted yesterday. Patient stated that this pain initially started in the abdominal and later involved his chest pain and back. Patient stated he has been having back pain for the last few days which is radiating down his legs. Patient denied any shortness of breath associated with it. Patient denies any bowel or urinary incontinence. Patient is an active smoker. Because of this persistent back and chest pain, patient presented to the ER where he was worked up. Initial lab work done in the ER was normal. * EKG reveals sinus mechanism with nonspecific ST-T wave changes * Chest xray negative for acute process CTA thoracic and abdominal aorta was negative for any PE or any evidence of aortic aneurysm or dissection CT thoracic and lumbar spine without contrast shows no fracture, no evidence of any significant disc herniation, no spinal stenosis Cardiology evaluated the patient ordered 2-D echocardiogram and dobutamine stress test. Dobutamine stress test was negative for any ischemia. 2-D echo showed LVEF of 55%,. Patient cleared for discharge PHYSICAL EXAMINATION: GENERAL: The patient is alert and oriented x3, not in any acute distress. Well d eveloped, well nourished. HEENT: Pupils are round and equally reacting to light. EOMI. No scleral icterus. No conjunctival pallor. Normocephalic, atraumatic. No pharyngeal erythema. No thyromegaly. CARDIOVASCULAR: S1 and S2 present. No murmurs, rubs, or gallops. PULMONARY: Chest is clear to auscultation, no wheezing or crackles. ABDOMEN: Soft, nontender, nondistended, normoactive bowel sounds. No palpable organomegaly. MUSCULOSKELETAL: No joint swelling or deformity. EXTREMITIES: No cyanosis, clubbing, or pedal edema. NEUROLOGICAL: Gross neurological examination did not reveal any focal deficits. SKIN: No rashes. Patient Condition at Discharge: Good Plan - Discharge Summary Discharge Rx Participant: No New Discharge Prescriptions: Continue Clopidogrel [Plavix] 75 mg PO DAILY Aspirin EC [Ecotrin Low Dose] 81 mg PO DAILY Nitroglycerin Sl Tabs [Nitrostat] 0.4 mg SUBLINGUAL Q5M PRN PRN Reason: Chest Pain Metoprolol Succinate (ER) [Toprol XL] 12.5 mg PO DAILY Atorvastatin Calcium [Lipitor] 80 mg PO DAILY Discharge Medication List Aspirin EC [Ecotrin Low Dose] 81 mg PO DAILY 02/09/22 [History] Atorvastatin Calcium [Lipitor] 80 mg PO DAILY 02/09/22 [History] Clopidogrel [Plavix] 75 mg PO DAILY 02/09/22 [History] Metoprolol Succinate (ER) [Toprol XL] 12.5 mg PO DAILY 02/09/22 [History] Nitroglycerin Sl Tabs [Nitrostat] 0.4 mg SUBLINGUAL Q5M PRN 02/09/22 [History] Follow up Appointment(s)/Referral(s): Olaf Zamora MD [Primary Care Provider] - 1-2 days Discharge Disposition: HOME SELF-CARE
== END 2022-02-10 14:48 | disposition home or self-care (01) ==
LOC: EC 18:23 → 6NMEDSUR 21:20
PROVIDERS: ADMIT Hospitalist; ATTEND Hospitalist
DX: R07.9 Chest pain, unspecified (principal); M54.50 Low back pain, unspecified; I25.119 Atherosclerotic heart disease of native coronary artery with unspecified angina pectoris; I10 Essential (primary) hypertension; E78.5 Hyperlipidemia, unspecified; F17.200 Nicotine dependence, unspecified, uncomplicated; Z95.5 Presence of coronary angioplasty implant and graft; Z79.02 Long term (current) use of antithrombotics/antiplatelets; Z79.82 Long term (current) use of aspirin; Z79.899 Other long term (current) drug therapy
CPT/HCPCS: 96374; 99285; 36415; 93005; 93306; 93351; 85379; 80061; 80053; 83735; 84484 ×2; 85025; 85610; 85730; 83036; 71046; 72128; 72131; 71275; 74174; G0378 ×2; J1250; J1170; Q9967

== ENCOUNTER → 2022-03-08 | Outpatient (CLI) | payer MEDICARE ==
--- NOTE | 2022-03-08 11:57 | US ---
EXAMINATION TYPE: US duplex aorta DATE OF EXAM: 03/08/2022 COMPARISON: CT angiogram 02/09/2022 CLINICAL HISTORY: Z13.6 screening for cardiovascular disorder. Smoker TECHNIQUE: Multiple sonographic images of the abdominal aorta are obtained. FINDINGS: EXAM MEASUREMENTS: Abdominal Aorta: Atheromatous changes are present. Grayscale, color Doppler, spectral Doppler imaging performed. Proximal: 2.4 x 2.7 cm Mid: 1.9 x 1.9 cm Distal: 1.9 x 2.2 cm Bifurcation: Right- 1.1 x 1.1 cm Left- 0.9 x 1.0 cm FIRE LOSS PREVENTION ENGINEER NOTES: Plaque visualized. No AAA visualized on today's exam. IMPRESSION: No evident abdominal aortic aneurysm.
== END | disposition home or self-care (01) ==
LOC: RADUSWWP 10:54
PROVIDERS: ATTEND Family Medicine
DX: Z13.6 Encounter for screening for cardiovascular disorders (principal)
CPT/HCPCS: 93979